=== PATIENT | female | born 2005 | race Two or more races ===

== ENCOUNTER 2024-01-02 17:50 | Emergency (ER) | payer MEDICAID ==
[~2024-01-02] VITALS: Ht 154.9 cm; Wt 193.0 kg
[2024-01-02 18:24] VITALS: BP 123/80; PULSE 86; RESP 16; TEMP 98.9; O2SAT 99
--- NOTE | 2024-01-02 18:35 | ED.PDOC ---
Musculoskeletal HPI Comments 18-year-old female presents to ER with complaints of right ankle pain x1 hour. Patient reports that she tripped and fell in her room and rolled her right ankle inwards 1 hour prior to arrival to ER and has since been experiencing pain/swelling to right lateral ankle. Denies head injury/LOC. She rates her current pain a 6/10 to right lateral ankle without radiation. Denies use of medications for current symptoms. Notes she is not able to bear weight on right leg due to right lateral ankle pain and presents to ER in wheelchair. Denies numbness/tingling, right foot pain, right tib/fib pain, right knee pain, right hip pain or any further symptoms/complaints Chief Complaint: Lower Extremity Time Seen by MD: 18:05 Primary Care Provider: UNKNOWN Reviewed Notes: Nurses Notes, Medications, Allergies Allergies: Coded Allergies: NO KNOWN ALLERGIES (Unverified , 01/02/24) Home Meds Active Scripts Acetaminophen (Acetaminophen) 500 Mg Tab, 500 MG PO Q4HPRN, #30 TAB 0 Refills Prov:LEBRON BLACK 01/02/24 Information Source: Patient Mode of Arrival: Wheelchair Past Medical History PAST MEDICAL HISTORY: Denies Surgical History: Denies all surgeries Family History Family History: Unknown Social History Smoker: Non-Smoker Alcohol: Denies ETOH Use Drugs: Denies Drug Use Lives In: Home Constitutional: denies: chills, diaphoresis, fatigue, fever, malaise, sweats, weakness, others EENTM: denies: blurred vision, double vision, ear bleeding, ear discharge, ear drainage, ear pain, ear ringing, eye pain, eye redness, hearing loss, mouth pain, mouth swelling, nasal discharge, nose bleeding, nose congestion, nose pain, photophobia, tearing, throat pain, throat swelling, voice changes, others Respiratory: denies: cough, hemoptysis, orthopnea, SOB at rest, shortness of breath, SOB with excertion, stridor, wheezing, others Cardiovascular: denies: chest pain, dizzy spells, diaphoresis, Dyspnea on e xertion, edema, irregular heart beat, left arm pain, lightheadedness, palpitations, PND, syncope, others Gastrointestinal: denies: abdomen distended, abdominal pain, blood streaked bowels, constipated, diarrhea, dysphagia, difficulty swallowing, hematemesis, melena, nausea, poor appetite, poor fluid intake, rectal bleeding, rectal pain, vomiting, others Genitourinary: denies: abnormal vagina bleeding, burning, dyspareunia, dysuria, flank pain, frequency, hematuria, incontinence, pain, , vagina discharge, urgency, others Neurological: denies: dizziness, fainting, headache, left sided numbness, left sided weakness, numbness, paresthesia, pre-existing deficit, right sided numbness, right sided weakness, seizure, speech problems, tingling, tremors, weakness, others Musculoskeletal: reports: others (As stated in HPI) Integumetry: reports: others (As stated in HPI) Allergic/Immunocompromised: denies: Difficulty Healing, Frequent Infections, Hives, Itching, others Hematologic/Lymphatic: denies: anemia, blood clots, easy bleeding, easy bruising, swollen glands, others Endocrine: denies: excessive hunger, excessive sweating, excessive thirst, excessive urination, flushing, intolerance to cold, intolerance to heat, unexplained weight gain, unexplained weight loss, others Psychiatric: denies: anxiety, bipolar disorder, depression, hopeless, panic disorder, schizophrenia, sleepless, suicidal, others Physical Exam General Appearance: No Apparent Distress, Obese HEENT: PERRL/EOMI, TMs Normal Neck: Full Range of Motion, Non-Tender, Normal Respiratory: Chest Non-Tender, Lungs Clear, No Accessory Muscle Use, No Respiratory Distress, Normal Breath Sounds Cardiovascular: No Murmur, No Gallop, Regular Rate/Rhythm Breast Exam: Deferred Gastrointestinal: NOT DONE Genitalia: Deferred Pelvic: Deferred Rectal: Deferred Extremities: No calf tenderness, Normal capillary refill Musculoskeletal : Extremity Location: Ankle (TTP/Mild swelling to right lateral malleolus. No other TTP to right ankle noted. No TTP to right foot noted. Patient able to bear minimal weight on right leg due to pain localized to right lateral malleolus. Pulses intact) Neurologic: Alert, No Motor Deficits, Normal Affect, Normal Mood, No Sensory Deficits Cerebellar Function: Normal Reflexes: Normal Skin: Dry, Normal Color, Warm Peripheral Pulses: 2+ dorsalis pedis (R), 2+ dorsalis pedis (L) Lymphatic: No Adenopathy Was a procedure done? Was a procedure done?: No Sedation Sedation?: No Differential Diagnosis EXT Differential Diagnosis: Fracture, Dislocation, Neurovascular injury X-Ray, Labs, Meds, VS Vital Signs Date Time Temp Pulse Resp B/P (MAP) Pulse Ox O2 Delivery O2 Flow Rate FiO2 01/02/24 18:24 86 16 99 Room Air 01/02/24 18:24 98.9 86 16 123/80 (94) 99 98.9 01/02/24 18:10 98.9 86 16 123/80 (94) 99 PATIENT: EDUARDO MALIK ACCT: [id number] UNIT: [id number] : 2005 LOC: ER ROOM / BED: / AGE / SEX: 18 / F ADM STATUS: REG ER SERVICE 30 ORDERING PHYSICIAN: LEBRON BLACK PROCEDURE(s): RANKL - R ANKLE 3 VIEW REASON: right ankle pain ORDER NUMBER(s): [id number], ACCESSION NUMBER(s): [id number] CLINICAL INDICATION: right ankle pain TECHNIQUE: 3 views of the right ankle. XY R ANKLE 3 VIEW Comparison: None FINDINGS/IMPRESSION: There is no evidence of acute fracture or dislocation. Moderate soft tissue swelling around the ankle ATED BY: ALIYA WALTER MD DICTATED DATE/TIME: 01/02/241929 SIGNED BY: ALIYA WALTER MD SIGNED DATE/TIME: 01/02/241929 CC: waiver signed Right ankle x-ray reviewed Jeffery wrap applied Crutches ordered, patient educated on proper use. Was advised on use at all times Advised on rest/no strenuous activity, elevation and alternate ice on/off as needed for pain/swelling Advised on re-x-ray right ankle in one week if symptoms do not improve Advised to follow up with PCP and orthopedics in 1-2 days Patient verbalized understanding and agreeable with current plan of care Advised to return to ER immediately if symptoms worsen Images Reviewed?: Images reviewed and evaluated by me Time of 1ST Reevaluation: 18:20 Reevaluation 1ST: N/A Patient Education/Counseling: Diagnosis, Treatment, Prognosis, Need For Follow Up Family Education/Counseling: Diagnosis, Treatment, Prognosis, Need For Follow Up Departure 1 Departure Time of Disposition: 18:42 Impression: Primary Impression: Right ankle sprain Qualified Codes: S93.401A - Sprain of unspecified ligament of right ankle, initial encounter Disposition: HOME / SELF CARE / HOMELESS Condition: Stable e-Prescriptions Acetaminophen (Acetaminophen) 500 Mg Tab 500 MG PO Q4HPRN, #30 TAB 0 Refills Prov: LEBRON BLACK 01/02/24 Discharged With: Relative (Mother) Critical Care Note Critical Care Time?: No Stability Stability form required: No Heart Score Heart Score: Heart Score Response (Comments) Value History N/A 0 EKG N/A 0 Age N/A 0 Risk Factors N/A 0 Troponin N/A 0 Total 0 LEBRON BLACK Jan 02, 2024 18:35
[2024-01-02] MEDS ORDERED: ACET500T58 PO (18:46)
--- NOTE | 2024-01-02 19:32 | DVH ---
CLINICAL INDICATION: right ankle pain TECHNIQUE: 3 views of the right ankle. XY R ANKLE 3 VIEW Comparison: None FINDINGS/IMPRESSION: There is no evidence of acute fracture or dislocation. Moderate soft tissue swelling around the ankle
== END 2024-01-02 19:38 | disposition home or self-care (01) ==
LOC: ER 17:50
DX: S93.491A Sprain of other ligament of right ankle, initial encounter (principal); W18.39XA Other fall on same level, initial encounter; Y93.89 Activity, other specified; Y92.89 Other specified places as the place of occurrence of the external cause; Y99.8 Other external cause status
CPT/HCPCS: 73610